=== PATIENT | female | born 1960 | race Caucasian/White ===

== ENCOUNTER → 2021-09-20 10:08 | Outpatient (CLI) | payer OTHER, SELFPAY ==
--- NOTE | ~2021-09-20 | XR_ITS ---
EXAMINATION: XR shoulder RT min 2V INDICATION: Right shoulder pain TECHNIQUE: Four views of the right shoulder are submitted. COMPARISON: None FINDINGS: Normal alignment. No fracture. 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 Calcific tendinitis is noted. IMPRESSION: 1. Calcific tendinitis. Reviewed, dictated and finalized at location F. ILE EXAMINER IMPRESSION: 1. Calcific tendinitis.
== END ==
PROVIDERS: PCP Family Medicine; Visit Provider Family Medicine
DX: M25.511 Pain in right shoulder (principal); M65.811 Other synovitis and tenosynovitis, right shoulder
CPT/HCPCS: 73030

== ENCOUNTER 2021-10-13 15:31 | Outpatient (CLI) | payer OTHER, SELFPAY ==
--- NOTE | ~2021-10-13 | MM_ITS ---
EXAMINATION: MM screening seb BI w mingo HISTORY: Screening mammogram TECHNIQUE: Craniocaudal and mediolateral oblique 3-D tomosynthesis images were obtained and synthetic 2-D images were generated. CAD analysis was submitted and interpreted. COMPARISON: No prior mammogram is available for comparison at this institution. BREAST PARENCHYMAL COMPOSITION: There are scattered areas of fibroglandular density. FINDINGS: There is no suspicious mass, calcification, or architectural distortion to suggest malignan cy in either breast. IMPRESSION: 1. No mammographic evidence of malignancy. 2. Recommend routine screening mammography in one year. BI-RADS Category 1: Negative Reviewed, dictated and finalized at location A.
== END 2021-10-13 15:32 | disposition home or self-care (01) ==
PROVIDERS: PCP Family Medicine; Visit Provider Family Medicine
DX: Z12.31 Encounter for screening mammogram for malignant neoplasm of breast (principal)
CPT/HCPCS: 77063; 77067

== ENCOUNTER 2022-09-08 10:05 | Outpatient (CLI) | payer OTHER, SELFPAY ==
[2022-09-08 19:53] LABS: Alanine Aminotransferase 23 U/L (6-35); Albumin Level 4.6 g/dL (3.5-5.1); Alkaline Phosphatase 67 U/L (38-126); Anion Gap 5 mmol/L (8-16); Aspartate Amino Transferase 30 U/L (14-36); Bilirubin,Total 0.6 mg/dL (0.2-1.3); Blood Urea Nitrogen 10 mg/dL (7-17); Calcium 9.4 mg/dL (8.4-10.2); Carbon Dioxide 30 mmol/L (22-30); Chloride 103 mmol/L (98-107); Cholesterol 204 mg/dL (0-200); Estimated Glomerular Filt Rate > 60; Glucose 90 mg/dL (65-110); HDL Direct 65 mg/dL; Potassium 4.7 mmol/L (3.4-5.0); Sodium 138 mmol/L (137-145); Triglycerides 137 mg/dL (<150)
[2022-09-08 20:04] LABS: LDL Cholesterol Direct 85 mg/dL
== END 2022-09-08 10:06 | disposition home or self-care (01) ==
LOC: ANHGOSHLAB 10:06
PROVIDERS: PCP Family Medicine; Visit Provider Family Medicine
DX: E78.5 Hyperlipidemia, unspecified (principal); I10 Essential (primary) hypertension
CPT/HCPCS: 36415; 80053; 80061

== ENCOUNTER 2023-01-04 19:10 | Outpatient (NON) | payer OTHER, SELFPAY | END 2023-01-04 19:11 | disposition home or self-care (01) | PROVIDERS: PCP Family Medicine; Visit Provider Nurse Practitioner Family | DX: N39.0 Urinary tract infection, site not specified (principal) | CPT/HCPCS: 87086 ==

== ENCOUNTER 2023-09-11 08:28 | Outpatient (CLI) | payer OTHER, SELFPAY ==
[2023-09-11 11:44] LABS: Alanine Aminotransferase 25 U/L (6-35); Albumin Level 4.1 g/dL (3.5-5.1); Alkaline Phosphatase 63 U/L (38-126); Anion Gap 5 mmol/L (8-16); Aspartate Amino Transferase 35 U/L (14-36); Bilirubin,Total 0.5 mg/dL (0.2-1.3); Blood Urea Nitrogen 16 mg/dL (7-17); Calcium 9.9 mg/dL (8.4-10.2); Carbon Dioxide 29 mmol/L (22-30); Chloride 106 mmol/L (98-107); Cholesterol 176 mg/dL (0-200); Estimated Glomerular Filt Rate > 60; Glucose 88 mg/dL (65-110); HDL Direct 64 mg/dL; Potassium 5.3 mmol/L (3.4-5.0); Sodium 140 mmol/L (137-145); Triglycerides 84 mg/dL (<150)
[2023-09-11 11:47] LABS: Basophils Absolute Auto 0.1 K/mm3 (0.0-0.1); Basophils Percent Auto 1.2 % (0.2-1.2); Eosinophils Absolute Auto 0.3 K/mm3 (0-0.3); Eosinophils Percent Auto 4.5 % (0-4.4); Hematocrit 41.8 % (37.0-47.0); Hemoglobin 12.9 g/dL (12.0-15.0); Immature Granulocyte Absolute 0.01 K/mm3 (0.00-0.031); Immature Granulocyte Percent A 0.2 % (0-0.5); Lymphocytes Absolute Auto 1.63 K/mm3 (0.9-3.2); Lymphocytes Percent Auto 28.4 % (18.3-44.2); Mean Corpuscular HGB Conc 30.9 g/dl (32-36); Mean Corpuscular Hemoglobin 29.4 pg (26-34); Mean Corpuscular Volume 95.2 fl (80-100); Mean Platelet Volume 10.9 fl (7.4-10.4); Monocytes Absolute Auto 0.5 K/mm3 (0.1-0.6); Monocytes Percent Auto 9.1 % (2.6-8.5); Neutrophils Absolute Auto 3.2 K/mm3 (1.3-6.7); Neutrophils Percent Auto 56.6 % (45.5-73.1); Nucleated Red Blood Cells Absolute Auto 0.1 K/mm3 (0.0-0.012); Nucleated Red Blood Cells Perc 0.9 % (0.0-0.2); Platelet Count Result 272 k/mm3 (150-375); Red Blood Count 4.39 M/mm3 (4.2-5.4); Red Cell Distribution Width 13.1 % (11.5-14.5); White Blood Count 5.7 K/mm3 (4.5-10.0)
[2023-09-11 11:55] LABS: LDL Cholesterol Direct 81 mg/dL
== END 2023-09-11 08:29 | disposition home or self-care (01) ==
LOC: ANHGOSHLAB 08:29
PROVIDERS: PCP Family Medicine; Visit Provider Family Medicine
DX: Z13.29 Encounter for screening for other suspected endocrine disorder (principal); E78.5 Hyperlipidemia, unspecified; R53.83 Other fatigue; Z13.228 Encounter for screening for other metabolic disorders
CPT/HCPCS: 36415; 80053; 80061; 84443; 85025

== ENCOUNTER 2024-03-13 11:25 | Outpatient (CLI) | payer OTHER, SELFPAY ==
[2024-03-13 13:45] LABS: Anion Gap 7 mmol/L (4-12); Blood Urea Nitrogen 19 mg/dL (7-17); Calcium 9.5 mg/dL (8.4-10.2); Carbon Dioxide 32 mmol/L (22-30); Chloride 96 mmol/L (98-107); Estimated Glomerular Filt Rate 56; Glucose 100 mg/dL (65-110); Potassium 4.8 mmol/L (3.4-5.0); Sodium 135 mmol/L (137-145)
== END 2024-03-13 11:26 | disposition home or self-care (01) ==
LOC: ANHGOSHLAB 11:26
PROVIDERS: PCP Family Medicine; Visit Provider Family Medicine
DX: Z13.228 Encounter for screening for other metabolic disorders (principal)
CPT/HCPCS: 36415; 80048

== ENCOUNTER 2024-08-06 13:49 | Outpatient (NON) | payer OTHER, SELFPAY | END 2024-08-06 13:50 | disposition home or self-care (01) | LOC: ANHGOSHLAB 13:51 | PROVIDERS: PCP Family Medicine; Visit Provider Family Medicine | DX: R31.9 Hematuria, unspecified (principal) | CPT/HCPCS: 87077; 87086; 87186 ==

== ENCOUNTER 2024-12-03 09:21 | Outpatient (CLI) | payer OTHER, SELFPAY ==
--- NOTE | ~2024-12-03 | MM_ITS ---
EXAMINATION: MM screening seb BI w mingo HISTORY: Screening TECHNIQUE: Craniocaudal and mediolateral oblique 3-D tomosynthesis images were obtained and synthetic 2-D images were generated. CAD analysis was submitted and interpreted. COMPARISON: 10/13/2021 BREAST PARENCHYMAL COMPOSITION: Not dense: There are scattered areas of fibroglandular density. FINDINGS: There is no evidence of suspicious mass, calcification, or architectural distortion to sugg est malignancy in either breast. There has been no suspicious interval change. IMPRESSION: 1. No mammographic evidence of malignancy. 2. Recommend routine screening mammography in one year. BI-RADS Category 1: Negative Reviewed, dictated and finalized at location A.
--- OUTSIDE RECORDS SUMMARY | 2024-12-03 09:50 | XMS_ITS | Clinical Summary ---
Author Organization [facility] [place] [address] Address [address] [place] [id number] Care Team Providers Care Diesel Powerplant Mechanic Helper Name Role Phone Mirta Andrade Unavailable [phone] Ricardo Smiley DO Primary Care Provider [phone] Allergies No known active allergies Medications amLODIPine (NORVASC) 5 mg tablet Take 10 mg by mouth daily 08/27/2021 Active benazepriL (LOTENSIN) 10 mg tablet Take 10 mg by mouth every evening 09/28/2021 Active lovastatin (MEVACOR) 20 mg tablet Take 20 mg by mouth nightly 08/27/2021 Active ascorbic acid (VITAMIN C) 500 mg tablet,chewable Take 1 tablet/chew tab (500 mg total) by mouth 2 (two) times a day 60 tablet/chew tab 01/05/2022 Active cholecalciferol (VITAMIN D-3) 2000 unit capsule Take 1 capsule (2,000 Units total) by mouth daily 30 capsule 01/05/2022 Active amLODIPine (NORVASC) 10 mg tablet Take 10 mg by mouth daily 12/20/2021 Active Active Problems Problem Noted Date Diagnosed Date Complete tear of right rotator cuff 12/16/2021 Overview (12/16/2021): Added automatically from request for surgery [id number] Impingement syndrome of right shoulder 2 Overview (12/16/2021): Added automatically from request for surgery [id number] Arthritis of right acromioclavicular joint 12/16 Overview (12/16/2021): Added automatically from request for surgery [id number] Biceps tendonitis, right 12/16/2021 Overview (12/16/2021): Added automatically from request for surgery [id number] Surgical History Surgery Date Site/Laterality Comments TUBAL LIGATION DILATION AND CURETTAGE OF UTERUS SHOULDER ARTHROSCOPY Medical History Medical History Date Comments Hypertension Hypercholesteremia Asthma Anxiety Eczema Family History Medical History Relation Name Comments Heart disease Other Hypertension Other Multiple sclerosis Other Stroke Other Relation Name Status Comments Other Social History Tobacco Use Types Packs/Day Years Used Date Smoking Tobacco: Never Smokeless Tobacco: Never AUDIT-C Answer Date Recorded Q1: How often do you have a drink containing alc ohol? Monthly or less 12/29/2021 Q2: How many drinks containi ng alcohol do you have on a typical day when you are drinking? 1 or 2 12/29/2021 Q3: How often do you have si x or more drinks on one occasion? 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 Gender Identity Not on file Sexual Orientation Not on file Obstetrics History Last Filed Vital Signs Vital Sign Reading Time Taken Comments Blood Pressure 144/81 04/10/2022 8:59 AM CDT Pulse 71 04/10/2022 8:59 AM CDT Temperature 36.7 C (98 F) 01/05/2022 2:01 PM CDT Respiratory Rate 20 01/05/2022 2:32 PM CDT Oxygen Saturation 99% 01/05/2022 2:32 PM CDT Inhaled Oxygen Concentration - - Weight 60.6 kg (133 lb 11.2 oz) 04/10/2022 8:59 AM CDT Height 161.3 cm (5' 3.5 ) 04/10/2022 8:59 AM CDT Body Mass Index 23.31 04/10/2022 8:59 AM CDT Plan of Treatment Health Maintenance Due Date Last Done Comments Breast Cancer Screening-Mammogram 1960 Cervical Cancer Screening 1960 Colon Cancer Screening-Colonoscopy 1960 Depression Screening 1960 Hepatitis C Screening 1960 DTaP/Tdap/Td Vaccine (1 - Tdap) 02/03/1972 Hepatitis B Screening 1979 Regular Well Visit/Exam 18-64 1979 Zoster Vaccine (1 of 2) 2011 Covid-19 Vaccine (4 2023-2 5 season) 2024 06/28/2021, 10/19/2020, 09/28/2020 Influenza Vaccine (#1) 2024 06/28/2021 Pneumococcal vaccine <65 Aged Out No longer eligible based on patient's age to complete this topic Insurance [facility] [id number] [employer] OPEN ACCESS [facility] [id number] Care Teams Diesel Powerplant Mechanic Helper Relationship Specialty Start Date End Date Ricardo Smiley DO PCP - General Family Medicine 01/19/22 Mirta Andrade PA Physician Veneer Stock Grader Orthopedic Surgery 01/05/22
--- OUTSIDE RECORDS SUMMARY | 2024-12-03 09:50 | XMS_ITS | Referral Summary ---
Author Organization [facility] [place] [address] Address [address] [place] [phone] Care Team Providers Care Milk Powder Grinder Name Role Phone Mirta Andrade Unavailable [phone] Ricardo Smiley DO Primary Care Provider [phone] Allergies No known active allergies Medications amLODIPine [...] (12/16/2021): Added automatically from request for surgery [id number] Impingement syndrome of right shoulder 2 Overview (12/16/2021): Added automatically from request for surgery [id number] Arthritis of right acromioclavicular joint 12/16 Overview (12/16/2021): Added automatically from request for surgery [id number] Biceps tendonitis, right 12/16/2021 Overview (12/16/2021): Added automatically from request for surgery [id number] Social History Tobacco Use Types Packs/Day Years [...] on file 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
== END 2024-12-03 09:22 | disposition home or self-care (01) ==
LOC: ANHIMG 09:25
PROVIDERS: PCP Family Medicine; Visit Provider Family Medicine
DX: Z12.31 Encounter for screening mammogram for malignant neoplasm of breast (principal)
CPT/HCPCS: 77063; 77067

== ENCOUNTER 2025-02-11 10:13 | Outpatient (CLI) | payer OTHER, SELFPAY ==
--- NOTE | ~2025-02-11 | DEXA_ITS ---
Bone Density Report Name: FRANTZ CORTES Age: 65 Sex: Female Ethnicity: White Date of : 1960 Indication: postmenopausal; screening for osteoporosis; asthma or emphysema; Referring Provider: KURT ANTONIO Study: Bone densitometry was performed. Exam Date: February 11, 2025 Accession number: [id number] Bone Density: Region BMD T-score Z-score Classification AP Spine(L1-L4) 0.769 -2.5 -0.8 Osteoporosis Femoral Neck (Left) 0.666 -1.6 -0.2 Osteopenia Total Hip (Left) 0.830 -0.9 0.3 Normal Femoral Neck (Right) 0.629 -2.0 -0.5 Osteopenia Total Hip (Right) 0.833 -0.9 0.3 Normal Total Hip Mean 0.831 -0.9 0.3 Normal World Health Organization criteria for BMD impression classify patients as: Normal (T-score at or above -1.0), Osteopenia (T-score between -1.0 and -2.5), or Osteoporosis (T-score at or below -2.5). 10-year Fracture Risk: FRAX not reported because: Some T-score for Spine Total or Hip Total or Femoral Neck at or below -2.5 Clinical Information Provided by Patient: Has the following medical conditions: Asthma or Emphysema Patient maximum height was 63.5 Menopause Age: 51 No regular weight bearing exercise Drinks caffeinated beverages Onset of menses at age 15 Number of children 3 Impression: The patient has osteoporosis, based on the Total Spine T-score. Discussion: INCREASED RISK OF FRACTURE. BONE DENSITY IS UNDESIRABLY LOW AT ONE OR MORE SKELETAL SITES, CONSISTENT WITH POSTMENOPAUSAL OSTEOPOROSIS. This patient's lowest T-score meets the World Health Organization's (WHO) criteria for osteoporosis at one or more sites (T-score -2.5 or below). In untreated patients, the risk of osteoporotic fracture increases approximately two-fold for each 1.0 SD decrease in T-score. Low bone density is not the only risk factor for fracture; also consider factors such as patient's age, frailty or poor health, risk of falling, risk of injury, previous osteoporotic fracture, family history of osteoporosis, cigarette smoking, low body weight, etc. Not everyone with low bone mineral density has osteoporosis; osteomalacia and other metabolic bone disorders should also be considered. Patients who have osteoporosis should be evaluated for specific diseases and conditions (secondary causes) that may cause or contribute to bone loss. The [place] Association of Clinical Endocrinologists (AACE) and National Osteoporosis Foundation (NOF) recommend pharmacologic intervention for all postmenopausal women whose T-score is in this range. The patient should follow a healthful lifestyle (good nutrition with adequate calcium and vitamin D, and appropriate weight-bearing exercise). Follow-Up: Consider a repeat BMD and Vertebral Fracture Assessment (VFA) exam in 2 years or sooner if medically necessary, to reassess this patient's status. Reported by: FABRIZIO on 02/11/2025 10:49:00 AM. Reviewed, dictated and finalized at location A.
--- OUTSIDE RECORDS SUMMARY | 2025-02-11 10:26 | XMS_ITS ---
Author Organization Unknown Medications Medication Instructions Effective Dates (start - stop) Status benazepril hydrochloride 20 MG Oral Tablet - Completed amlodipine 5 MG Oral Tablet [id number] :00:00Z - Completed amlodipine 5 MG Oral Tablet [id number] :00:00Z - Completed - - Compl eted lovastatin 20 MG Oral Tablet [id number] 0:00:00Z - Completed lovastatin 20 MG Oral Tablet [id number] 0:00:00Z - Completed lovastatin 20 MG Oral Tablet [id number] 0:00:00Z - Completed lovastatin 20 MG Oral Tablet [id number] 0:00:00Z - Completed - - Compl eted amlodipine 5 MG Oral Tablet [id number] :00:00Z - Completed benazepril hydrochloride 20 MG Oral Tablet - Completed - - Compl eted Patient Care team information Name Category Status Period Participants - - Proposed period not known -
--- OUTSIDE RECORDS SUMMARY | 2025-02-11 10:26 | XMS_ITS | Clinical Summary ---
Author Organization [facility] [place] [address] Address [address] [place] [id number] Care Team Providers Care Secondary Spanish Teacher Name Role Phone Mirta Andrade Unavailable [phone] Ricardo Smiley DO Primary Care Provider [phone] Allergies No known active allergies Medications amLODIPine [...] (12/16/2021): Added automatically from request for surgery [id number] Impingement syndrome of right shoulder 2 Overview (12/16/2021): Added automatically from request for surgery [id number] Arthritis of right acromioclavicular joint 12/16 Overview (12/16/2021): Added automatically from request for surgery [id number] Biceps tendonitis, right 12/16/2021 Overview (12/16/2021): Added automatically from request for surgery [id number] Surgical History Surgery Date Site/Laterality Comments TUBAL [...] on file 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 Gender Identity Not on file Sexual Orientation [...] 8:59 AM CDT Height 161.3 cm (5' 3.5) 04/10/2022 8:59 AM CDT Body Mass Index [...] (1 of 2) 2011 Covid-19 Vaccine (4 - 2023-2 5 season) 2024 06/28/2021, 10/19/2020, 09/28/2020 Influenza Vaccine (Season Ended) 2025 06/28/2021 Pneumococcal vaccine <65 Aged Out No longer eligible based on patient's age to complete this topic Insurance [facility] [id number] [employer] OPEN ACCESS [facility] [id number] Care Teams Secondary Spanish Teacher Relationship Specialty Start Date End Date Ricardo Smiley DO PCP - General Family Medicine 01/19/22 Mirta Andrade PA Physician Steel Analyst Orthopedic Surgery 01/05/22
--- OUTSIDE RECORDS SUMMARY | 2025-02-11 10:26 | XMS_ITS | Referral Summary ---
Author Organization [facility] [place] [address] Address [address] [place] [phone] Care Team Providers Care Electrical & Instrumentation Supervisor Name Role Phone Mirta Andrade Unavailable [phone] Ricardo Smiley DO Primary Care Provider Allergies No known active allergies Medications amLODIPine [...] (12/16/2021): Added automatically from request for surgery [id number] Impingement syndrome of right shoulder 2 Overview (12/16/2021): Added automatically from request for surgery [id number] Arthritis of right acromioclavicular joint 12/16 Overview (12/16/2021): Added automatically from request for surgery [id number] Biceps tendonitis, right 12/16/2021 Overview (12/16/2021): Added automatically from request for surgery [id number] Social History Tobacco Use Types Packs/Day Years [...] on file 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
== END 2025-02-11 10:14 | disposition home or self-care (01) ==
LOC: ANHIMG 10:15
PROVIDERS: PCP Family Medicine; Visit Provider Family Medicine
DX: Z78.0 Asymptomatic menopausal state (principal); M85.89 Other specified disorders of bone density and structure, multiple sites; M81.0 Age-related osteoporosis without current pathological fracture
CPT/HCPCS: 77080